=== PATIENT | female | born 1990 | race Caucasian/White ===

== ENCOUNTER 2016-10-22 10:39 | Emergency (ER) | payer MEDICAID, OTHER ==
[~2016-10-22] VITALS: Ht 167.6 cm; Wt 72.7 kg
[2016-10-22 11:50] VITALS: BP 131/92
--- NOTE | 2016-10-22 13:54 | REP ---
LEFT CLAVICLE, TWO VIEWS: There is no evidence of an acute fracture, dislocation or intrinsic bone disease. IMPRESSION: No fracture or dislocation. Signed by Louie Bowie MD 10/22/2016 03:21 P
== END 2016-10-22 11:51 | disposition home or self-care (01) ==
LOC: EDBD 10:39 → M ED 11:33
DX: S10.93XA Contusion of unspecified part of neck, initial encounter (principal); V46.5XXA Car driver injured in collision with other nonmotor vehicle in traffic accident, initial encounter; Y92.410 Unspecified street and highway as the place of occurrence of the external cause; Y99.9 Unspecified external cause status; Y93.9 Activity, unspecified